=== PATIENT | male | born 1965 | race Caucasian/White ===

== ENCOUNTER → 2017-08-21 10:03 | Outpatient (CLI) | payer BC, SELFPAY ==
--- NOTE | 2017-08-21 10:12 | XR_ITS ---
XR knee LT 3V HISTORY: ITS.REASON: LEFT KNEE PAIN ORDERING PHYSICIAN: Roger Mccarthy MD PATIENT AGE: 51 years COMPARISON: None FINDINGS: There are moderate osteoarthritic changes of the medial compartment and mild osteoarthritic changes of the lateral compartment patellofemoral joint. Mildly prominent osteophytes are present medially. There is increased density in the suprapatellar region consistent with knee joint effusion. Otherwise negative. IMPRESSION: Osteoarthritis with knee joint effusion
== END ==
PROVIDERS: PCP Family Medicine; Visit Provider Family Medicine
DX: M25.562 Pain in left knee (principal)
CPT/HCPCS: 73562

== ENCOUNTER → 2019-11-30 13:32 | Outpatient (CLI) | payer BC, SELFPAY ==
--- NOTE | 2019-11-30 | MR_ITS ---
PROCEDURE: MR KNEE LT WO CON CLINICAL INDICATION: INTERNAL DERANGMENT OF LEFT KNEE Pt. C/o posterior left knee pain with no known trauma or injury. Pt describes a popping of the knee when he straightens it. COMPARISON: CR [id number] XR knee LT 3V from 08/21/2017 TECHNIQUE: Routine multiplanar multi echo sequences are performed without gadolinium enhancement. FINDINGS: Cruciate ligaments are intact. The collateral ligaments, patellar tendon, and quadriceps tendon appear intact. There are moderate tricompartmental osteoarthritic changes of the knee. No definite meniscal tear is apparent. There is decrease in the joint space medially and laterally with medial extrusion of the medial meniscus and lateral extrusion of the lateral meniscus resulting in further decrease in the joint space. There is osteosclerosis of the articular surface of the distal femur and proximal tibia. Decreased T1 and increase T2 signal involves the anterior surface of the medial femoral condyle and the opposing anterior surface of the medial tibial plateau consistent with areas of bone marrow edema which may be seen with arthritic change or osteochondrosis. There is a medium size knee joint effusion. Osteoarthritic changes involve the patellofemoral joint as well with some thinning of the patellar cartilage. Osteophytes are present at the distal femur along the femoral condyles. IMPRESSION: 1. Moderate osteoarthritic changes involving all 3 compartments with bone marrow edema of the medial femoral condyle and medial tibial plateau which could be due to inflammatory changes from the arthritis or osteochondrosis. 2. No evidence of internal derangement. 3. Medium-sized knee joint effusion Dictated by: Emiliano Rodriguez MD 12/02/2019 11:16 Emiliano Rodriguez MD in [place] 12/02/2019 11:16
== END ==
PROVIDERS: PCP Family Medicine; Visit Provider Family Medicine
DX: M23.92 Unspecified internal derangement of left knee (principal)
CPT/HCPCS: 73721

== ENCOUNTER → 2019-12-01 13:56 | Outpatient (POV) | payer BC, SELFPAY | PROVIDERS: Visit Provider Dermatology | DX: Z00.00 Encounter for general adult medical examination without abnormal findings (principal) ==

== ENCOUNTER → 2020-01-04 09:02 | Outpatient (CLI) | payer BC, SELFPAY ==
--- NOTE | 2020-01-04 09:07 | XR_ITS ---
PROCEDURE: XR KNEE LT 4V CLINICAL INDICATION: Left knee pain COMPARISON: CR [id number] XR knee LT 3V from 08/21/2017 FINDINGS: There are moderate to severe osteoarthritic changes of the medial compartment and patellofemoral joint with moderate osteoarthritis of the lateral compartment. There is a small suprapatellar effusion. Curvilinear calcific density is present along the medial femoral condyle proximally consistent with an old avulsion or MCL ligamentous injury. No acute fracture or dislocation. IMPRESSION: Osteoarthritic changes which are somewhat worse compared to the previous exam with knee joint effusion Dictated by: Emiliano Rodriguez MD 01/04/2020 17:40 Emiliano Rodriguez MD in [place] 01/04/2020 17:40
== END ==
PROVIDERS: PCP Family Medicine; Visit Provider Orthopaedic Surgery
DX: M25.562 Pain in left knee (principal); M25.561 Pain in right knee
CPT/HCPCS: 73564

== ENCOUNTER → 2020-10-25 10:55 | Outpatient (CLI) | payer BC, SELFPAY ==
--- NOTE | 2020-10-25 11:01 | XR_ITS ---
PROCEDURE: XR CHEST 2V CLINICAL HISTORY: HX OF HIGH BLOOD PRESSURE, PRE OPERATIVE COMPARISON: No exams were available for comparison FINDINGS: The cardiomediastinal silhouette and pulmonary vascularity are within normal limits. The lungs are clear without infiltrates, suspicious nodules, or pleural effusions. No acute bony abnormalities. IMPRESSION: No acute findings. Dictated by: Lizeth Rojas 10/25/2020 12:28 Lizeth Rojas in [place] 10/25/2020 12:28
--- NOTE | 2020-10-25 11:19 | ECG_ITS ---
APPROVED REPORT Exam: Resting ECG HR:49 bpm ECG Measurements Heart Rate 49 AXES VA 170 P 3 QRSd 90 QRS -21 QT 434 T -3 QTc 392 Conclusion Marked sinus bradycardia Minimal voltage criteria for LVH, may be normal variant Late r wave progression Abnormal ECG Electronically signed by : Negrito Birmingham, 10/27/2020 14:31:35
== END ==
PROVIDERS: PCP Family Medicine; Visit Provider Family Medicine
DX: Z01.818 Encounter for other preprocedural examination (principal)
CPT/HCPCS: 71046; 93005

== ENCOUNTER → 2020-11-09 08:08 | Outpatient (CLI) | payer BC, SELFPAY ==
--- NOTE | 2020-11-09 | CA_ITS ---
APPROVED REPORT Exam: Exercise Treadmill Technologist: Annalisa Harrington, Ht: 5 ft 9 in Wt: 200 lbs BSA: 2.07 m2 HR: 61 bpm BP: 151/88 mmHg Medical History Medications: Lisonopril,,,,, Stress Test Details Test: Darryl HR Resting HR: 69 bpm Max Heart Rate (APMHR): 165.727205 bpm Max HR Achieved: 144 bpm Target HR (85% APMHR): 140.181706 bpm % of APMHR: 87.27 Recovery HR: 74 bpm BP Resting BP: 154/96 mmHg Max BP: 196/94 mmHg Recovery BP: 155.0/92.0 mmHg ECG Resting ECG: NSR, normal Clinical Exercise duration: 09:01 min Highest Stage Achieved: Exercise capacity: 10.1 METs Stress ECG Conclusion Exercised 9:00 on Darryl Protocol Max HR: 144 % of PM: 87% Max BP: 196/94 METs: 10.1 Stopped due to: Knee pain, SOA Symptoms No: CP Arrhythmias/Ectopy: None ST-T Changes: Allowing for motion artifact, the ST response to exercise is within normal. Conclusion: Normal GXT. GXT only (no imaging) Test Summary REST . . . . . . . Sitting REST . . . . . . . Standing REST 10:17 0.0 0.0 69 . 154/ 96 . . Stage 1 01:00 10.0 1.7 90 . . . . Stage 1 02:00 10.0 1.7 98 . . . . Stage 1 03:00 10.0 1.7 104 . 180/ 94 . . Stage 2 01:00 12.0 2.5 110 . . . . Stage 2 02:00 12.0 2.5 119 . . . . Stage 2 03:00 12.0 2.5 121 . 196/ 94 . . Stage 3 01:00 14.0 3.4 135 . . . . Stage 3 02:00 14.0 3.4 138 . . . . Stage 3 03:00 14.0 3.4 143 . . . . Stage 4 00:01 16.0 4.2 143 . . . Stop exercise at 09:01 RECOVERY 01:00 0.0 0.0 112 . . . . RECOVERY 02:00 0.0 0.0 92 . 196/ 92 . . RECOVERY 03:00 0.0 0.0 78 . 176/ 98 . . RECOVERY 04:00 0.0 0.0 76 . 157/102 . . RECOVERY 05:00 0.0 0.0 75 . 157/102 . . RECOVERY 05:46 0.0 0.0 80 . 155/ 92 . . Electronically signed by : Macho Lozano MD 11/10/2020 14:54:28
--- NOTE | 2020-11-09 08:44 | CA_ITS ---
APPROVED REPORT EXAM: Comprehensive 2D, Doppler, and color-flow Echocardiogram Senior Solutions Architect: Danielle Broderick CRT Ht: 5 ft 9 in Wt: 200lbs BSA: 2.07 BP: 154/96 mmHg Indications: Fatigue, Hypertension/HDD, Pre-Op knee 11-14-20, sob 2D Dimensions LVOT 1.93 cm (M/F) 1.5-2.5 LA Volume 25.10 mL LA Volume Index 12.10 mL/m2 (M/F) 16-34 M-Mode Dimensions RVDd 2.47 cm (0.9-2.6) LA Diam 3.14 cm (1.9-4.0) LVDd 5.48 cm (3.5-5.7) Ao Diam 4.50 cm (2.0-3.7) LVDs 3.55 cm (3.5-5.7) IVSd 1.72 cm (0.6-1.1) PWd 0.82 cm (0.6-1.1) EF (Teich) 64.00% FS 35.20% EDV (Teich) 146.20 mL TAPSE 2.09 (<1.7) ESV (Teich) 52.60 mL LV Diastology E Decel Time 220.00 (160-240 msec) E/A Ratio 1.36 MED E' 5.80 (< 7 cm/sec) MED A' 6.70 cm/s E'/MED E' Ratio 13.00 (>14) LAT E' 11.00 (<10 cm/sec) LAT A' 9.90 cm/s E/LAT E' Ratio 6.85 (>14) Aortic Valve AO Peak GR. 5.50 mmHg Mitral Valve MV A Velocity 56.00 (40-130 cm/s) E/A Ratio 1.36 MV Decel. Time 220.00 (160-240 ms) Pulmonary Valve PV Peak Velocity 99.00 (50-150 cm/s) Tricuspid Valve TR P. Velocity 251.00 cm/s RAP Estimate 10.00 mmHg RVSP 35.20 mmHg Left Ventricle Left atrium normal size, left ventricular normal size, left ventricular wall thickness is upper limit of normal, there is preserved left ventricular systolic function, visually estimated ejection fraction 55% with no regional wall motion abnormality. Diastolic parameters are inconclusive. Right Ventricle Right atrium and right ventricle are normal size and contractility. Aortic Valve Aortic valve is minimally thickened and fibrosed. There is no aortic stenosis or aortic insufficiency. Mitral Valve Mitral valve grossly normal, there is trace mitral regurgitation. Tricuspid Valve Tricuspid grossly normal, there is trace tricuspid regurgitation, tricuspid regurgitation jet velocity is inadequate for calculation of the right ventricular systolic pressure. Pulmonic Valve Pulmonic valve is poorly visualized. Great Vessels Aortic root is normal size. Pericardium No significant pericardial effusion noted. Conclusion 1. Normal left ventricular size, preserved left ventricular systolic function, visually estimated ejection fraction 55% with no regional wall motion abnormality, diastolic functions are inconclusive. 2. Trace mitral and tricuspid regurgitation. 3. No significant pericardial effusion noted. Electronically signed by : Macho Lozano MD 11/10/2020 15:37:44
== END ==
PROVIDERS: PCP Family Medicine; Visit Provider Internal Medicine Cardiovascular Disease
DX: Z01.810 Encounter for preprocedural cardiovascular examination (principal); R00.1 Bradycardia, unspecified
CPT/HCPCS: 93017; 93306

== ENCOUNTER → 2021-07-22 07:48 | Outpatient (CLI) | payer BC, SELFPAY ==
[2021-07-22 08:17] LABS: Basophils # 0.1 K/mm3 (0-0.2); Basophils % 3.2 % (0.1-2.0); Eosinophils # 0.3 K/mm3 (0.0-0.4); Eosinophils % 7.2 % (0.1-12.0); Hemoglobin 16.7 g/dL (14.1-18.0); Lymphocytes # 1.4 K/mm3 (0.7-4.5); Lymphocytes % 34.2 % (10-50); Mean Corpuscular Hemoglobin 32.8 pg (27.0-31.2); Mean Corpuscular Volume 96.6 fl (80-94); Mean Platelet Volume 7.6 fl (7.4-10.4); Monocytes # 0.2 K/mm3 (0.1-1.0); Monocytes % 5.9 % (1.7-9.3); Neutrophils % 49.5 % (37.0-80.0); Platelet Count 304 K/mm3 (142-424); Red Blood Count 5.07 M/mm3 (4.60-6.20); Red Cell Distribution Width 13.2 % (11.5-17.5); White Blood Count 4.1 K/mm3 (4.8-10.8)
[2021-07-22 08:31] LABS: Activated Partial Thrombo Time 25.1 seconds (22.8-30.6); INR 0.93 (0.9-1.1); Prothrombin Time 10.6 seconds (10.1-12.5)
[2021-07-22 09:26] LABS: Alanine Aminotransferase 30 U/L (12-78); Albumin Level 4.3 g/dl (3.5-5.0); Albumin/Globulin Ratio 1.6 (1.1-1.8); Alkaline Phosphatase 69 U/L (38-126); Anion Gap 11.3 mEq/L (5-15); Aspartate Amino Transferase 27 U/L (17-59); Bilirubin,Total 0.8 mg/dl (0.2-1.3); Blood Urea Nitrogen 17 mg/dl (9-20); Calcium 9.5 mg/dl (8.4-10.2); Carbon Dioxide 31 mmol/L (22.0-30.0); Chloride 103 mmol/L (98-107); Estimated Glomerular Filt Rate 100 ml/min (>60); GFR (African American) 121 ML/MIN (>60); Globulin 2.7 g/dL (1.3-3.2); Glucose 115 mg/dl (74-100); Potassium 5.3 mmoL/L (3.5-5.1); Sodium 140 mmol/L (136-145)
[2021-07-22 12:25] LABS: Hemoglobin A1C 5.4 % (4.0-6.0)
== END ==
LOC: COVID.OUT 07:49 → LAB 07:58
PROVIDERS: PCP Family Medicine; Visit Provider Family Medicine
DX: Z01.818 Encounter for other preprocedural examination (principal)
CPT/HCPCS: 36415; 80053; 83036; 85025; 85610; 85730

== ENCOUNTER → 2021-07-25 15:12 | Outpatient (CLI) | payer BC, SELFPAY ==
--- NOTE | 2021-07-25 | ECG_ITS ---
APPROVED REPORT Exam: Resting ECG HR:68 bpm ECG Measurements Heart Rate 68 AXES [place] 147 P 50 QRSd 110 QRS 2 QT 384 T 47 QTc 401 Conclusion SINUS RHYTHM NORMAL ECG UNCONFIRMED REPORT Electronically signed by : Negrito Birmingham MD 07/26/2021 10:11:15
== END ==
PROVIDERS: PCP Family Medicine; Visit Provider Family Medicine
DX: Z01.810 Encounter for preprocedural cardiovascular examination (principal)
CPT/HCPCS: 93005

== ENCOUNTER → 2022-07-13 07:18 | Outpatient (CLI) | payer BC, SELFPAY ==
[2022-07-13 08:18] LABS: Basophils # 0.1 K/mm3 (0-0.2); Basophils % 1.2 % (0.1-2.0); Eosinophils # 0.5 K/mm3 (0.0-0.4); Hematocrit 47.4 % (42.0-52.0); Hemoglobin 15.6 g/dL (14.1-18.0); Lymphocytes # 1.5 K/mm3 (0.7-4.5); Lymphocytes % 29.3 % (10-50); Mean Corpuscular Hemoglobin 32.1 pg (27.0-31.2); Mean Corpuscular Volume 97.3 fl (80-94); Mean Platelet Volume 7.6 fl (7.4-10.4); Monocytes # 0.4 K/mm3 (0.1-1.0); Monocytes % 7.4 % (1.7-9.3); Neutrophils # 2.7 K/mm3 (1.8-7.8); Neutrophils % 53.1 % (37.0-80.0); Platelet Count 260 K/mm3 (142-424); Red Blood Count 4.87 M/mm3 (4.60-6.20); Red Cell Distribution Width 13.7 % (11.5-17.5); White Blood Count 5.1 K/mm3 (4.8-10.8)
[2022-07-13 08:29] LABS: Chloride 104 mmol/L (98-107); Potassium 4.3 mmoL/L (3.5-5.1); Sodium 141 mmol/L (136-145)
[2022-07-13 08:31] LABS: Alanine Aminotransferase 29 U/L (12-78); Aspartate Amino Transferase 27 U/L (17-59); Blood Urea Nitrogen 13 mg/dl (9-20); Estimated Glomerular Filt Rate 100 ml/min (>60); GFR (African American) 121 ML/MIN (>60)
[2022-07-13 08:32] LABS: Albumin Level 4.3 g/dl (3.5-5.0); Albumin/Globulin Ratio 1.7 (1.1-1.8); Alkaline Phosphatase 74 U/L (38-126); Anion Gap 12.3 mEq/L (5-15); Bilirubin,Total 1.3 mg/dl (0.2-1.3); Calcium 9.1 mg/dl (8.4-10.2); Carbon Dioxide 29 mmol/L (22.0-30.0); Chol/HDL Ratio 4.4 (1-3.5); Cholesterol 218 mg/dl (140-200); Globulin 2.6 g/dL (1.3-3.2); Glucose 108 mg/dl (74-100); HDL Cholesterol 49 mg/dl (40-60); Total Protein,Serum 6.9 g/dl (6.3-8.2); Triglycerides 95 mg/dl (30-150); VLDL Cholesterol 19 mg/dL (0-40)
[2022-07-13 08:43] LABS: Direct LDL Cholesterol 146.85 mg/dL (100-129)
[2022-07-13 09:48] LABS: Prostate Specific Ag Screen 1.1 ng/ml (0.0-4.0)
== END ==
PROVIDERS: PCP Family Medicine; Visit Provider Family Medicine
DX: I10 Essential (primary) hypertension (principal); E78.5 Hyperlipidemia, unspecified; E34.9 Endocrine disorder, unspecified; Z12.5 Encounter for screening for malignant neoplasm of prostate
CPT/HCPCS: 36415; 80053; 80061; 85025; G0103

== ENCOUNTER 2023-09-28 07:27 | Outpatient (CLI) | payer BC, SELFPAY ==
[2023-09-28 08:06] LABS: Basophils # 0.3 K/mm3 (0-0.2); Basophils % 5.8 % (0.1-2.0); Eosinophils # 0.2 K/mm3 (0.0-0.4); Eosinophils % 3.6 % (0.1-12.0); Hematocrit 46.1 % (42.0-52.0); Hemoglobin 15.1 g/dL (14.1-18.0); Lymphocytes # 2.6 K/mm3 (0.7-4.5); Lymphocytes % 60.1 % (10-50); Mean Corpuscular HGB Conc 32.7 g/dL (31.8-35.4); Mean Corpuscular Hemoglobin 32.6 pg (27.0-31.2); Mean Corpuscular Volume 99.7 fl (80-94); Mean Platelet Volume 8.2 fl (7.4-10.4); Monocytes # 0.5 K/mm3 (0.1-1.0); Monocytes % 10.7 % (1.7-9.3); Neutrophils # 1.1 K/mm3 (1.8-7.8); Neutrophils % 25.6 % (37.0-80.0); Platelet Count 265 K/mm3 (142-424); Red Blood Count 4.63 M/mm3 (4.60-6.20); Red Cell Distribution Width 13.4 % (11.5-17.5); White Blood Count 4.4 K/mm3 (4.8-10.8)
[2023-09-28 08:39] LABS: MANUAL DIFFERENTIAL MANUAL DIFFERENTIAL (MANUAL DIFF)
[2023-09-28 09:29] LABS: Chloride 107 mmol/L (98-107); Sodium 138 mmol/L (136-145)
[2023-09-28 09:30] LABS: Potassium 4.3 mmoL/L (3.5-5.1)
[2023-09-28 09:32] LABS: Alanine Aminotransferase 46 U/L (12-78); Alkaline Phosphatase 78 U/L (38-126); Aspartate Amino Transferase 36 U/L (17-59); Bilirubin,Total 0.6 mg/dl (0.2-1.3); Blood Urea Nitrogen 14 mg/dl (9-20); Estimated Glomerular Filt Rate 99 ml/min (>60); GFR (African American) 120 ML/MIN (>60)
[2023-09-28 09:33] LABS: Albumin Level 4.3 g/dl (3.5-5.0); Albumin/Globulin Ratio 1.5 (1.1-1.8); Anion Gap 11.3 mEq/L (5-15); Calcium 9.6 mg/dl (8.4-10.2); Carbon Dioxide 24 mmol/L (22.0-30.0); Chol/HDL Ratio 5.2 (1-3.5); Cholesterol 262 mg/dl (140-200); Globulin 2.9 g/dL (1.3-3.2); Glucose 105 mg/dl (74-100); HDL Cholesterol 50 mg/dl (40-60); Total Protein,Serum 7.2 g/dl (6.3-8.2); Triglycerides 182 mg/dl (30-150); VLDL Cholesterol 36 mg/dL (0-40)
[2023-09-28 09:44] LABS: Direct LDL Cholesterol 170.18 mg/dL (100-129)
[2023-09-28 12:25] LABS: Eosinophils % 1 % (0-3); Lymphocytes % 57 % (10-50); Monocytes % 6 % (2-9); Neutrophils % 30 % (42-76); Platelet Estimate Normal; RBC Morphology Normal; Total Cells Counted 100
[2023-09-28 14:17] LABS: Prostate Specific Ag Screen 2.6 ng/ml (0.0-4.0)
[2023-10-04 12:34] LABS: Testosterone,Total 291 ng/dL (264-916)
== END 2023-09-28 23:59 | disposition home or self-care (01) ==
PROVIDERS: PCP Family Medicine; Visit Provider Family Medicine
DX: I10 Essential (primary) hypertension (principal); E78.5 Hyperlipidemia, unspecified; Z12.5 Encounter for screening for malignant neoplasm of prostate
CPT/HCPCS: 80053; 80061; 84403; 85007; 85025; 85027; G0103